=== PATIENT | male | born 1985 | race African-American/Black ===

== ENCOUNTER 2019-11-17 21:41 | Emergency (ER) | payer BC ==
[~2019-11-17] VITALS: Ht 190.5 cm; Wt 90.7 kg
[2019-11-17] MEDS ORDERED: AUGMENTIN 875875 MG PO (22:52)
== END 2019-11-17 22:59 | disposition home or self-care (01) ==
LOC: ED 21:41
DX: K02.9 Dental caries, unspecified (principal)

== ENCOUNTER 2020-08-21 07:54 | Emergency (ER) | payer BC ==
[~2020-08-21] VITALS: Ht 190.5 cm; Wt 86.2 kg
[~2020-08-21 07:54] MED LIST: AUGMENTIN 875875 MG PO
== END 2020-08-21 08:50 | disposition home or self-care (01) ==
LOC: ED 07:54
DX: R21 Rash and other nonspecific skin eruption (principal); T50.B95A Adverse effect of other viral vaccines, initial encounter; Y92.89 Other specified places as the place of occurrence of the external cause

== ENCOUNTER 2021-04-25 10:48 | Emergency (ER) | payer BC ==
[~2021-04-25] VITALS: Wt 90.7 kg
[2021-04-25] MEDS ORDERED: PREDNISONE20 M1 PO (12:01)
[2021-04-25] MEDS ORDERED: PROVENTIL HFA6.7 GM INH (12:01)
== END 2021-04-25 13:57 | disposition home or self-care (01) ==
LOC: ED 10:48
DX: U07.1 COVID-19 (principal); F17.200 Nicotine dependence, unspecified, uncomplicated

== ENCOUNTER 2022-03-14 05:37 | Emergency (ER) | payer BC ==
[~2022-03-14] VITALS: Ht 190.5 cm; Wt 88.5 kg
[~2022-03-14 05:37] MED LIST changes: +PREDNISONE20 M1 PO; +PROVENTIL HFA6.7 GM INH
[2022-03-14] MEDS ORDERED: ERYTHROMYCIN OPH1 GM OPH (06:14)
[2022-03-14] MEDS ORDERED: OMEPRAZOLE MAGN20 MG PO (06:14)
== END 2022-03-14 07:16 | disposition home or self-care (01) ==
LOC: ED 05:37
DX: R10.13 Epigastric pain (principal); H00.015 Hordeolum externum left lower eyelid; Z20.2 Contact with and (suspected) exposure to infections with a predominantly sexual mode of transmission

== ENCOUNTER 2022-09-23 09:11 | Emergency (ER) | payer BC ==
[~2022-09-23 09:11] MED LIST changes: +ERYTHROMYCIN OPH1 GM OPH; +OMEPRAZOLE MAGN20 MG PO
[2022-09-23] MEDS ORDERED: VIBRA-TAB100 MG PO (09:51)
== END 2022-09-23 09:54 | disposition home or self-care (01) ==
LOC: ED 09:11
DX: N34.1 Nonspecific urethritis (principal)